=== PATIENT | female | born 1930 | race Caucasian/White ===

== ENCOUNTER → 2016-12-28 | Outpatient (CLI) | payer MEDICARE | END | disposition home or self-care (01) | LOC: CFH 06:51 | PROVIDERS: ATTEND Nurse Practitioner Family | DX: M48.06 Spinal stenosis, lumbar region (principal); M51.26 Other intervertebral disc displacement, lumbar region; M51.24 Other intervertebral disc displacement, thoracic region; M43.16 Spondylolisthesis, lumbar region; M43.26 Fusion of spine, lumbar region; Z98.890 Other specified postprocedural states | CPT/HCPCS: 72148 ==

== ENCOUNTER 2017-05-19 09:55 | Inpatient (IN) | payer MEDICARE ==
[~2017-05-19] VITALS: Ht 167.6 cm; Wt 74.5 kg
[2017-05-19] MEDS ORDERED: VALS1TAB19 PO (10:38)
[2017-05-19] MEDS ORDERED: CLON0.1T PO (10:38)
[2017-05-19] MEDS ORDERED: AMLO5TAB2 PO (10:38)
[2017-05-19] MEDS ORDERED: FURO20TA3 PO (10:38)
[2017-05-19] MEDS ORDERED: METO-99 PO (10:38)
[2017-05-19] MEDS ORDERED: cranberry PO (10:38)
[2017-05-19] MEDS ORDERED: LEVO50TA5 PO (10:38)
[2017-05-19] MEDS ORDERED: ASPI325T17 PO (10:38)
[2017-05-19] MEDS ORDERED: ATOR20TA9 PO (10:38)
[2017-05-19] MEDS ORDERED: CHOL2000 PO (10:38)
[2017-05-19] MEDS ORDERED: CALC215T PO (10:38)
[2017-05-19] MEDS ORDERED: OMEG1CAP24 PO (10:38)
[2017-05-19] MEDS ORDERED: SODIUM CHLORIDE FLUSH 10ML SYR IVF ONE (11:30)
[2017-05-19 11:41] LABS: HEMATOCRIT 41.8 % (34.6-47.8); HEMOGLOBIN 14.3 g/dL (11.7-16.4); WHITE BLOOD COUNT 8.4 x10^3/uL (3.4-10)
[2017-05-19 11:49] LABS: BLOOD UREA NITROGEN 42 mg/dL (7-18)
[2017-05-19 11:53] LABS: IS PT STATUS REG ER OR PRE ER? YES
[2017-05-19] MEDS ORDERED: CEFTRIAXONE PMX 1GM/50ML 50 ML IV ONE (12:30)
[2017-05-19] MEDS ORDERED: HEPARIN 25,000 UNITS/500ML PMX 500 ML ONE (13:16)
[2017-05-19] MEDS ORDERED: CEFTRIAXONE PMX 1GM/50ML 50 ML ONE (13:16)
[2017-05-19] MEDS ORDERED: HEPARIN 5,000 UNITS/ML, 1ML IV ONE (13:30)
[2017-05-19] MEDS ORDERED: HEPARIN 5,000 UNITS/ML, 1ML ONE (13:33)
[2017-05-19] MEDS: HEPARIN 25,000 UNITS/500ML PMX 500 ML IV PRN (13:52)
[2017-05-19] MEDS: HEPARIN 5,000 UNITS/ML, 1ML IV PRN ×2 (13:53→21:20)
[2017-05-19] MEDS ORDERED: HYDROcodone/APAP 5/325 TABLET PO PRN (14:30)
[2017-05-19] MEDS ORDERED: morphine SULFATE 10 MG/ML, 1ML IVPush PRN (14:30)
[2017-05-19] MEDS ORDERED: ACETAMINOPHEN 325 MG TABLET PO PRN (14:30)
[2017-05-19] MEDS ORDERED: hydrALAzine 20 MG/ML, 1ML IVPush PRN (14:30)
[2017-05-19] MEDS ORDERED: CEFTRIAXONE PMX 1GM/50ML 50 ML IV SCH (14:30)
[2017-05-19] MEDS ORDERED: ONDANSETRON 2MG/ML, 2ML IVPush PRN (14:30)
[2017-05-19 15:15] LABS: IS PT STATUS REG ER OR PRE ER? YES
[2017-05-19] MEDS ORDERED: CEFTRIAXONE 1,000 MG in DEXTROSE 5% 50 ML IV SCH (15:47)
[2017-05-19 16:01] VITALS: BP 166/91
[2017-05-19] MEDS: WARFARIN 10 MG TABLET PO-COUM SCH (18:39)
[2017-05-19 20:30] VITALS: BP 142/88
[2017-05-19] MEDS: METOPROLOL TARTRATE 100 MG TABLET PO SCH (21:22)
[2017-05-19] MEDS: DOXYCYCLINE 100MG TABLET PO SCH (21:22)
[2017-05-19] MEDS: OMEGA-3/FISH OIL CAPSULE PO SCH (21:22)
[2017-05-19] MEDS: ATORVASTATIN 20 MG TABLET PO SCH (21:22)
[2017-05-19] MEDS: CALCIUM CARBONATE 500 MG TAB.CHEW PO SCH (21:22)
[2017-05-20 00:18] VITALS: BP 159/80
[2017-05-20 03:44] LABS: HEMATOCRIT 39.5 % (34.6-47.8); HEMOGLOBIN 13.1 g/dL (11.7-16.4); WHITE BLOOD COUNT 8.7 x10^3/uL (3.4-10)
[2017-05-20 03:54] LABS: BLOOD UREA NITROGEN 46 mg/dL (7-18)
[2017-05-20 03:58] LABS: ASPARTATE AMINO TRANSFERASE 40 U/L (15-37)
[2017-05-20 08:22] VITALS: BP 163/80
[2017-05-20] MEDS ORDERED: CLOPIDOGREL 75 MG TABLET PO SCH (09:00)
[2017-05-20] MEDS ORDERED: HYDROCHLOROTHIAZIDE 25 MG TABLET PO SCH (09:00)
[2017-05-20] MEDS ORDERED: FUROSEMIDE 20 MG TABLET PO SCH (09:00)
[2017-05-20] MEDS ORDERED: FUROSEMIDE 40 MG TABLET ONE (09:04)
[2017-05-20] MEDS: VALSARTAN 320 MG TABLET PO SCH (09:08)
[2017-05-20] MEDS: CALCIUM CARBONATE 500 MG TAB.CHEW PO SCH ×2 (09:09→22:01)
[2017-05-20] MEDS: OMEGA-3/FISH OIL CAPSULE PO SCH ×2 (09:09→22:01)
[2017-05-20] MEDS: LEVOTHYROXINE 50 MCG TABLET PO SCH (09:10)
[2017-05-20] MEDS: DOXYCYCLINE 100MG TABLET PO SCH ×2 (09:10→22:00)
[2017-05-20] MEDS: FUROSEMIDE 20 MG TABLET PO SCH (09:10)
[2017-05-20] MEDS: METOPROLOL TARTRATE 100 MG TABLET PO SCH ×2 (09:10→22:01)
[2017-05-20] MEDS: CHOLECALCIFEROL 1,000 UNIT TABLET PO SCH (09:10)
[2017-05-20] MEDS: GUAIFENESIN 200 MG TABLET PO SCH ×3 (12:51→22:01)
[2017-05-20 14:47] VITALS: BP 142/82
[2017-05-20] MEDS ORDERED: CEFTRIAXONE 1,000 MG in DEXTROSE 5% 50 ML IV SCH (16:30)
[2017-05-20] MEDS: WARFARIN 10 MG TABLET PO-COUM SCH (17:18)
[2017-05-20] MEDS: CEFTRIAXONE PMX 1GM/50ML 50 ML IV SCH (17:18)
[2017-05-20 20:26] VITALS: BP 121/75
[2017-05-20] MEDS: ATORVASTATIN 20 MG TABLET PO SCH (22:00)
[2017-05-20] MEDS: HEPARIN 25,000 UNITS/500ML PMX 500 ML IV PRN (22:36)
[2017-05-21 00:09] VITALS: BP 129/78
[2017-05-21 05:57] LABS: ANTI-Xa-UNFRACTIONATED HEP 0.46 IU/mL (0.30-0.70)
[2017-05-21 06:00] LABS: BLOOD UREA NITROGEN 45 mg/dL (7-18)
[2017-05-21 07:20] VITALS: BP 162/84
[2017-05-21] MEDS ORDERED: HEPARIN 25,000 UNITS/500ML PMX 500 ML IV PRN (08:29)
[2017-05-21] MEDS ORDERED: HEPARIN 5,000 UNITS/ML, 1ML IV PRN (08:30)
[2017-05-21] MEDS ORDERED: POTASSIUM CHLORIDE 20 MEQ TAB.ER.PRT PO ONE (08:30)
[2017-05-21] MEDS: VALSARTAN 320 MG TABLET PO SCH (08:46)
[2017-05-21] MEDS: LEVOTHYROXINE 50 MCG TABLET PO SCH (08:46)
[2017-05-21] MEDS: FUROSEMIDE 20 MG TABLET PO SCH (08:46)
[2017-05-21] MEDS: DOXYCYCLINE 100MG TABLET PO SCH ×2 (08:46→21:47)
[2017-05-21] MEDS: METOPROLOL TARTRATE 50 MG TABLET PO SCH ×2 (08:46→16:56)
[2017-05-21] MEDS: CALCIUM CARBONATE 500 MG TAB.CHEW PO SCH ×2 (08:46→21:47)
[2017-05-21] MEDS: CHOLECALCIFEROL 1,000 UNIT TABLET PO SCH (08:46)
[2017-05-21] MEDS: POTASSIUM CHLORIDE 10 MEQ TABLET.ER PO SCH ×3 (08:47→16:56)
[2017-05-21] MEDS: OMEGA-3/FISH OIL CAPSULE PO SCH ×2 (08:47→21:46)
[2017-05-21] MEDS: GUAIFENESIN 200 MG TABLET PO SCH ×3 (08:47→21:46)
[2017-05-21 13:10] VITALS: BP 143/96
[2017-05-21] MEDS: CEFTRIAXONE PMX 1GM/50ML 50 ML IV SCH (16:56)
[2017-05-21] MEDS: WARFARIN 10 MG TABLET PO-COUM SCH (16:56)
[2017-05-21 19:01] VITALS: BP 148/90
[2017-05-21] MEDS: ATORVASTATIN 20 MG TABLET PO SCH (21:45)
[2017-05-21] MEDS: BENZONATATE 100 MG CAPSULE PO PRN (21:46)
[2017-05-22 00:45] VITALS: BP 143/96
[2017-05-22] MEDS: METOPROLOL TARTRATE 50 MG TABLET PO SCH (04:31)
[2017-05-22] MEDS: BENZONATATE 100 MG CAPSULE PO PRN (04:32)
[2017-05-22 04:57] LABS: ANTI-Xa-UNFRACTIONATED HEP 0.49 IU/mL (0.30-0.70)
[2017-05-22 05:11] LABS: BLOOD UREA NITROGEN 48 mg/dL (7-18)
[2017-05-22 07:35] VITALS: BP 140/91
[2017-05-22] MEDS ORDERED: POTASSIUM CHLORIDE 20 MEQ TAB.ER.PRT PO SCH (08:00)
[2017-05-22] MEDS: OMEGA-3/FISH OIL CAPSULE PO SCH (08:53)
[2017-05-22] MEDS: FUROSEMIDE 20 MG TABLET PO SCH (08:53)
[2017-05-22] MEDS: GUAIFENESIN 200 MG TABLET PO SCH (08:53)
[2017-05-22] MEDS: POTASSIUM CHLORIDE 10 MEQ TABLET.ER PO SCH (08:53)
[2017-05-22] MEDS: VALSARTAN 320 MG TABLET PO SCH (08:53)
[2017-05-22] MEDS: LEVOTHYROXINE 50 MCG TABLET PO SCH (08:54)
[2017-05-22] MEDS: CHOLECALCIFEROL 1,000 UNIT TABLET PO SCH (08:54)
[2017-05-22] MEDS: CALCIUM CARBONATE 500 MG TAB.CHEW PO SCH (08:54)
[2017-05-22] MEDS: DOXYCYCLINE 100MG TABLET PO SCH (08:54)
[2017-05-22] MEDS ORDERED: CEFD300C37 PO (09:45)
[2017-05-22] MEDS ORDERED: GUAI200T3 PO (09:45)
[2017-05-22] MEDS ORDERED: FURO20TA3 PO (09:45)
[2017-05-22] MEDS ORDERED: DOXY100T PO (09:45)
[2017-05-22] MEDS ORDERED: WARF5TAB PO (09:45)
[2017-05-22] MEDS ORDERED: METO50TA82 PO (09:45)
[2017-05-22] MEDS ORDERED: POTA20TA6 PO (09:45)
[2017-05-22] MEDS ORDERED: ASPI-621 PO (12:33)
== END 2017-05-22 13:53 | disposition home health service (06) | DRG 64 ==
LOC: ED 12:31 → EDIP 13:07 → SUATTDRO 13:41 → 5SO 15:46
PROVIDERS: ADMIT Internal Medicine; ATTEND Internal Medicine
DX: I63.9 Cerebral infarction, unspecified (principal); J18.9 Pneumonia, unspecified organism; E43 Unspecified severe protein-calorie malnutrition; N17.9 Acute kidney failure, unspecified; I13.0 Hypertensive heart and chronic kidney disease with heart failure and stage 1 through stage 4 chronic kidney disease, or unspecified chronic kidney disease; I48.91 Unspecified atrial fibrillation; D68.59 Other primary thrombophilia; I50.30 Unspecified diastolic (congestive) heart failure; R47.01 Aphasia; E03.9 Hypothyroidism, unspecified; E78.5 Hyperlipidemia, unspecified; D32.9 Benign neoplasm of meninges, unspecified; J32.4 Chronic pansinusitis; N18.3 Chronic kidney disease, stage 3 (moderate); Z66 Do not resuscitate; G89.29 Other chronic pain; M54.9 Dorsalgia, unspecified; Z68.26 Body mass index [BMI] 26.0-26.9, adult; Z80.0 Family history of malignant neoplasm of digestive organs; Z80.49 Family history of malignant neoplasm of other genital organs; Z86.73 Personal history of transient ischemic attack (TIA), and cerebral infarction without residual deficits; Z90.710 Acquired absence of both cervix and uterus
CPT/HCPCS: 36415; 70450; 70551; 71010; 80048; 80053; 82040; 83735; 83880; 84100; 84443; 84484; 85025; 85520; 85610; 87040; 93005; 93306; 96365; J0696; J1644; 92523-GN

== ENCOUNTER → 2017-12-07 | Outpatient (CLI) | payer MEDICARE ==
[~2017-12-07] MED LIST: AMLO5TAB2 PO; ASPI-621 PO; ASPI325T17 PO; ATOR20TA9 PO; CALC215T PO; CEFD300C37 PO; CHOL2000 PO; CLON0.1T PO; DOXY100T PO; FURO20TA3 PO; GADOBUTROL 7.5 MMOL/7.5 ML VIAL ONE; GUAI200T3 PO; LEVO50TA5 PO; METO-99 PO; METO50TA82 PO; OMEG1CAP24 PO; POTA20TA6 PO; VALS1TAB19 PO; WARF5TAB PO; cranberry PO
== END | disposition home or self-care (01) ==
LOC: CFH 10:08
PROVIDERS: ATTEND Neurological Surgery
DX: D32.0 Benign neoplasm of cerebral meninges (principal); R90.82 White matter disease, unspecified; I67.82 Cerebral ischemia; I63.8 Other cerebral infarction; Z86.018 Personal history of other benign neoplasm
CPT/HCPCS: 70553; A9585

== ENCOUNTER 2018-06-16 11:13 | Inpatient (IN) | payer MEDICARE ==
[~2018-06-16] VITALS: Ht 162.6 cm; Wt 65.5 kg
[~2018-06-16 11:13] MED LIST changes: +AMLO-150 PO; -AMLO5TAB2 PO; -ASPI-621 PO; +ASPI81TA45 PO; +ATOR20TA37 PO; -ATOR20TA9 PO; -CLON0.1T PO; +CLON0.1T22 PO; -GADOBUTROL 7.5 MMOL/7.5 ML VIAL ONE
--- NOTE | 2018-06-16 11:30 | NUR ---
Pt BIB EMS from home for syncopal episode lasting 1-5 seconds per . Pt was caught by and did not fall. Pt had near syncopal and falls with R ankle pain yesterday. Pt also states has had cough x 1 week. CSM intact. No head, neck, back pain. Afib on monitor. VSS.
[2018-06-16 12:07] LABS: BASOPHILS # (AUTO) 0.02 x10^3/uL (0-0.1); BASOPHILS % (AUTO) 1 % (0-1); EOSINOPHILS # (AUTO) 0.01 x10^3/uL (0-0.4); EOSINOPHILS % (AUTO) 0 % (1-7); LYMPHOCYTES # (AUTO) 0.81 x10^3/uL (1-3.4); LYMPHOCYTES % (AUTO) 22 % (22-44); MD NO; MEAN CORPUSCULAR HEMOGLOBIN 30.9 pg (27.0-34.8); MEAN CORPUSCULAR HGB CONC 33.5 g/dL (32.4-35.8); MEAN CORPUSCULAR VOLUME 92.2 fL (80-100); MEAN PLATELET VOLUME 9.3 fL (7.4-10.4); MONOCYTES # (AUTO) 0.57 x10^3/uL (0.2-0.8); MONOCYTES % (AUTO) 16 % (2-9); NEUTROPHILS % (AUTO) 61 % (42-75); PLATELET COUNT 191 x10^3/uL (130-400); RED BLOOD COUNT 3.95 x10^6/uL (3.82-5.3); RED CELL DISTRIBUTION WIDTH 14.6 % (9.6-15.2)
[2018-06-16 12:17] LABS: INTERNATIONAL NORMALIZED RATIO 1.68 (0.93-1.1); PROTHROMBIN TIME 17.5 Seconds (9.6-11.5)
[2018-06-16 12:19] LABS: ALBUMIN 3.6 g/dL (3.4-5.0); ANION GAP 10 mmol/L (5-15); CALCIUM 8.2 mg/dL (8.5-10.1); CHLORIDE 106 mmol/L (98-107); CREATININE 3.57 mg/dL (0.55-1.02)
[2018-06-16 12:23] LABS: TROPONIN I 0.022 ng/mL (0.000-0.045)
[2018-06-16] MEDS ORDERED: METO-93 PO (13:59)
[2018-06-16] MEDS ORDERED: BISACODYL 10 MG SUPP PR PRN (14:00)
[2018-06-16] MEDS ORDERED: hydrALAzine 20 MG/ML, 1ML IVPush PRN (14:00)
[2018-06-16] MEDS ORDERED: DOCUSATE 100 MG CAPSULE PO PRN (14:00)
[2018-06-16] MEDS ORDERED: BENZONATATE 100 MG CAPSULE PO PRN (14:00)
[2018-06-16] MEDS ORDERED: POLYETHYLENE GLYCOL 17 GM PACKET PO PRN (14:00)
[2018-06-16] MEDS ORDERED: ONDANSETRON 2MG/ML, 2ML IVPush PRN (14:00)
[2018-06-16] MEDS ORDERED: HYDR-3343 PO (14:02)
[2018-06-16] MEDS ORDERED: AMLO-150 PO (14:02)
[2018-06-16] MEDS ORDERED: METO25TA91 PO (14:02)
[2018-06-16 14:35] VITALS: BP 139/83
[2018-06-16] MEDS ORDERED: ASPI-515 PO (15:33)
[2018-06-16] MEDS ORDERED: MULT-257 PO (15:33)
[2018-06-16] MEDS: HEPARIN 5,000 UNITS/ML, 1ML SQ SCH ×2 (16:15→22:31)
[2018-06-16 16:22] LABS: MICROSCOPIC AUTO
[2018-06-16 16:23] LABS: CULTURE INDICATED? YES
[2018-06-16] MEDS ORDERED: WARFARIN 2.5 MG TABLET PO-COUM ONE (18:00)
[2018-06-16 18:37] LABS: TROPONIN I < 0.015 ng/mL (0.000-0.045)
[2018-06-16 19:00] VITALS: BP 129/73
[2018-06-16] MEDS: ATORVASTATIN 20 MG TABLET PO SCH (20:17)
[2018-06-16] MEDS: SODIUM CHLORIDE FLUSH 10ML SYR IVF SCH (20:18)
[2018-06-17 00:57] LABS: BASOPHILS # (AUTO) 0.02 x10^3/uL (0-0.1); BASOPHILS % (AUTO) 1 % (0-1); EOSINOPHILS # (AUTO) 0.02 x10^3/uL (0-0.4); EOSINOPHILS % (AUTO) 1 % (1-7); LYMPHOCYTES # (AUTO) 1.51 x10^3/uL (1-3.4); LYMPHOCYTES % (AUTO) 34 % (22-44); MD NO; MEAN CORPUSCULAR HEMOGLOBIN 31.3 pg (27.0-34.8); MEAN CORPUSCULAR HGB CONC 34.2 g/dL (32.4-35.8); MEAN CORPUSCULAR VOLUME 91.5 fL (80-100); MEAN PLATELET VOLUME 8.8 fL (7.4-10.4); MONOCYTES % (AUTO) 18 % (2-9); NEUTROPHILS # (AUTO) 2.09 x10^3/uL (1.8-6.8); NEUTROPHILS % (AUTO) 47 % (42-75); PLATELET COUNT 191 x10^3/uL (130-400); RED BLOOD COUNT 3.52 x10^6/uL (3.82-5.3); RED CELL DISTRIBUTION WIDTH 14.5 % (9.6-15.2)
[2018-06-17 01:06] LABS: INTERNATIONAL NORMALIZED RATIO 2.14 (0.93-1.1)
[2018-06-17 01:09] LABS: ANION GAP 9 mmol/L (5-15); CALCIUM 8.2 mg/dL (8.5-10.1); CHLORIDE 106 mmol/L (98-107); CREATININE 3.44 mg/dL (0.55-1.02)
[2018-06-17 01:20] LABS: TROPONIN I 0.031 ng/mL (0.000-0.045)
[2018-06-17 01:40] VITALS: BP 132/77
[2018-06-17] MEDS: HEPARIN 5,000 UNITS/ML, 1ML SQ SCH (05:45)
[2018-06-17] MEDS ORDERED: WARFARIN SODIUM 5 MG PO SCH (09:00)
[2018-06-17 09:05] VITALS: BP 170/79
[2018-06-17] MEDS: METOPROLOL SUCCINATE 25 MG TAB.ER.24H PO SCH (10:03)
[2018-06-17] MEDS: FUROSEMIDE 20 MG TABLET PO SCH (10:04)
[2018-06-17] MEDS: AMLODIPINE 5 MG TABLET PO SCH (10:04)
[2018-06-17] MEDS: CHOLECALCIFEROL 1,000 UNIT TABLET PO SCH (10:04)
[2018-06-17] MEDS: SODIUM CHLORIDE FLUSH 10ML SYR IVF SCH ×2 (10:05→20:09)
[2018-06-17] MEDS: LEVOTHYROXINE 50 MCG TABLET PO SCH (10:10)
[2018-06-17 15:04] VITALS: BP 147/68
[2018-06-17] MEDS ORDERED: WARFARIN 5 MG TABLET PO-COUM SCH (18:00)
[2018-06-17 20:02] VITALS: BP 158/71
[2018-06-17] MEDS: ATORVASTATIN 20 MG TABLET PO SCH (20:08)
[2018-06-17] MEDS: ACETAMINOPHEN 325 MG TABLET PO PRN (20:09)
[2018-06-18 00:24] VITALS: BP 127/71
[2018-06-18 01:46] LABS: BASOPHILS # (AUTO) 0.02 x10^3/uL (0-0.1); BASOPHILS % (AUTO) 1 % (0-1); EOSINOPHILS # (AUTO) 0.06 x10^3/uL (0-0.4); EOSINOPHILS % (AUTO) 2 % (1-7); LYMPHOCYTES # (AUTO) 1.27 x10^3/uL (1-3.4); LYMPHOCYTES % (AUTO) 37 % (22-44); MD NO; MEAN CORPUSCULAR HEMOGLOBIN 31.4 pg (27.0-34.8); MEAN CORPUSCULAR HGB CONC 33.9 g/dL (32.4-35.8); MEAN CORPUSCULAR VOLUME 92.7 fL (80-100); MEAN PLATELET VOLUME 8.8 fL (7.4-10.4); MONOCYTES # (AUTO) 0.59 x10^3/uL (0.2-0.8); MONOCYTES % (AUTO) 17 % (2-9); NEUTROPHILS # (AUTO) 1.47 x10^3/uL (1.8-6.8); NEUTROPHILS % (AUTO) 43 % (42-75); PLATELET COUNT 191 x10^3/uL (130-400); RED BLOOD COUNT 3.25 x10^6/uL (3.82-5.3); RED CELL DISTRIBUTION WIDTH 14.5 % (9.6-15.2)
[2018-06-18 01:56] LABS: ALANINE AMINOTRANSFERASE 18 U/L (12-78); ALBUMIN 2.7 g/dL (3.4-5.0); ANION GAP 8 mmol/L (5-15); CALCIUM 8.1 mg/dL (8.5-10.1); CHLORIDE 105 mmol/L (98-107); CREATININE 3.34 mg/dL (0.55-1.02)
[2018-06-18 01:59] LABS: ALKALINE PHOSPHATASE 56 U/L (45-117); BILIRUBIN,TOTAL 0.4 mg/dL (0.2-1.0); TOTAL PROTEIN 5.7 g/dL (6.4-8.2)
[2018-06-18] MEDS: LEVOTHYROXINE 50 MCG TABLET PO SCH (05:19)
[2018-06-18] MEDS: ACETAMINOPHEN 325 MG TABLET PO PRN (06:06)
[2018-06-18 06:51] VITALS: BP 136/75
[2018-06-18 07:39] LABS: INTERNATIONAL NORMALIZED RATIO 2.42 (0.93-1.1); PROTHROMBIN TIME 24.8 Seconds (9.6-11.5)
[2018-06-18] MEDS: CHOLECALCIFEROL 1,000 UNIT TABLET PO SCH (09:14)
[2018-06-18] MEDS: FUROSEMIDE 20 MG TABLET PO SCH (09:14)
[2018-06-18] MEDS: METOPROLOL SUCCINATE 25 MG TAB.ER.24H PO SCH (09:15)
[2018-06-18] MEDS: AMLODIPINE 5 MG TABLET PO SCH (09:15)
[2018-06-18] MEDS: SODIUM CHLORIDE FLUSH 10ML SYR IVF SCH (09:17)
[2018-06-18] MEDS ORDERED: WARFARIN 2 MG TABLET PO-COUM ONE (12:47)
[2018-06-18] MEDS ORDERED: WARFARIN 2 MG TABLET PO-COUM SCH (18:00)
== END 2018-06-18 12:56 | disposition home or self-care (01) | DRG 74 ==
LOC: ED 12:19 → EDIP 13:10 → 4WST 14:29
PROVIDERS: ADMIT Internal Medicine; ATTEND Internal Medicine
DX: G90.8 Other disorders of autonomic nervous system (principal); D68.69 Other thrombophilia; I13.0 Hypertensive heart and chronic kidney disease with heart failure and stage 1 through stage 4 chronic kidney disease, or unspecified chronic kidney disease; I50.32 Chronic diastolic (congestive) heart failure; N18.4 Chronic kidney disease, stage 4 (severe); E03.9 Hypothyroidism, unspecified; E78.5 Hyperlipidemia, unspecified; I48.91 Unspecified atrial fibrillation; I65.23 Occlusion and stenosis of bilateral carotid arteries; I73.9 Peripheral vascular disease, unspecified; R29.6 Repeated falls; S93.401A Sprain of unspecified ligament of right ankle, initial encounter; W18.39XA Other fall on same level, initial encounter; Y93.89 Activity, other specified; Y92.89 Other specified places as the place of occurrence of the external cause; Y99.8 Other external cause status; Z79.01 Long term (current) use of anticoagulants; Z86.73 Personal history of transient ischemic attack (TIA), and cerebral infarction without residual deficits; Z90.710 Acquired absence of both cervix and uterus; Z66 Do not resuscitate; J06.9 Acute upper respiratory infection, unspecified; Z86.011 Personal history of benign neoplasm of the brain; Z79.82 Long term (current) use of aspirin; Z79.899 Other long term (current) drug therapy; Z98.42 Cataract extraction status, left eye; Z98.41 Cataract extraction status, right eye; Z80.9 Family history of malignant neoplasm, unspecified; Z88.0 Allergy status to penicillin
CPT/HCPCS: 36415; 70450; 71045; 80048; 80053; 81001; 82040; 83880; 84443; 84484; 85025; 85610; 85730; 87086; 93005; 93306; 93880; 99285; G0378; J1644